=== PATIENT | female | born 1995 | race Two or more races ===

== ENCOUNTER 2016-07-21 11:03 | Emergency (ER) | payer MEDICAID ==
[~2016-07-21] VITALS: Ht 157.5 cm; Wt 56.7 kg
[2016-07-21 11:37] LABS: Urine Bilirubin Negative (Negative); Urine Blood Negative /uL (Negative); Urine Color Yellow (Yellow); Urine Glucose Normal (Normal); Urine Ketone Negative (Negative); Urine Mucus FEW (None Seen); Urine Nitrite Negative (Negative); Urine RBC 1 /hpf (0 - 4); Urine Squamous Epithelial Cell FEW /hpf (<5); Urine Urobilinogen Normal (Negative)
[2016-07-21 14:10] VITALS: BP 114/75
== END 2016-07-21 16:32 | disposition home or self-care (01) ==
LOC: ER 11:03
DX: O20.0 Threatened abortion (principal); O23.41 Unspecified infection of urinary tract in pregnancy, first trimester; Z3A.09 9 weeks gestation of pregnancy
CPT/HCPCS: 36415; 76801; 81001; 81025; 84702